=== PATIENT | male | born 1950 | race Caucasian/White ===

== ENCOUNTER → 2017-02-14 | Outpatient (CLI) | payer OTHER | LOC: BHFA 10:15 | PROVIDERS: ATTEND Internal Medicine Cardiovascular Disease | DX: I48.91 Unspecified atrial fibrillation (principal) ==

== ENCOUNTER → 2017-05-16 | Outpatient (CLI) | payer OTHER ==
[~2017-05-16] MED LIST: IOPAMIDOL (ISOVUE 370) 100 ML BTL IV ONE
== END ==
LOC: FIMAGING 08:53
PROVIDERS: ATTEND Internal Medicine Cardiovascular Disease
DX: Z09 Encounter for follow-up examination after completed treatment for conditions other than malignant neoplasm (principal); I71.2 Thoracic aortic aneurysm, without rupture; I51.7 Cardiomegaly
CPT/HCPCS: 71275; Q9967

== ENCOUNTER → 2017-05-16 | Outpatient (CLI) | payer OTHER | LOC: FCPNEURO 20:00 | PROVIDERS: ATTEND Psychiatry & Neurology Sleep Medicine | DX: G47.33 Obstructive sleep apnea (adult) (pediatric) (principal); G47.39 Other sleep apnea | CPT/HCPCS: Q9967 ==

== ENCOUNTER 2017-05-28 08:02 | Day surgery (SDC) | payer OTHER ==
[2017-05-28] MEDS ORDERED: DIAZEPAM 5 MG TAB PO ONE (08:04)
[2017-05-28] MEDS ORDERED: ASPIRIN EC 325 MG TAB PO ONE ×2 (08:04→08:26)
[2017-05-28] MEDS ORDERED: FAMOTIDINE 20 MG TAB PO ONE (08:04)
[2017-05-28] MEDS ORDERED: diphenhydrAMINE 25 MG CAP PO ONE ×2 (08:04→08:26)
[2017-05-28] MEDS ORDERED: NS 1,000 ML IV ONE (08:04)
--- NOTE | 2017-05-28 08:25 | CPEKG ---
Heart Rate: 71 RR Interval: 845 P-R Interval: 240 QRSD Interval: 78 QT Interval: 428 QTC Interval: 466 QRS Fre[place]: 27 T Wave Freeland: -7 EKG Severity - ABNORMAL ECG - EKG Impression: ATRIAL-PACED COMPLEXES EKG Impression: FIRST DEGREE AV BLOCK EKG Impression: LOW VOLTAGE IN FRONTAL LEADS EKG Impression: Single A-V paced beat Electronically Signed By: Niels Ortiz 28-May-2017 14:29:22
[2017-05-28] MEDS ORDERED: DIAZEPAM 5 MG TAB ONE (08:26)
[2017-05-28] MEDS ORDERED: FAMOTIDINE 20 MG TAB ONE (08:26)
[2017-05-28] MEDS ORDERED: fentaNYL 100 MCG/2 ML INJ ONE (08:30)
[2017-05-28] MEDS ORDERED: LIDOCAINE 1% 300 MG/30 ML SDV ONE (08:30)
[2017-05-28] MEDS ORDERED: IOPAMIDOL (ISOVUE-370) 150 ML BTL IV ONE (08:31)
[2017-05-28] MEDS ORDERED: HEPARIN 10,000 UNIT/10 ML MDV ONE (08:31)
[2017-05-28] MEDS ORDERED: MIDAZOLAM 2 MG/2 ML VIAL ONE (08:31)
[2017-05-28] MEDS ORDERED: VERAPAMIL 5 MG/2 ML VIAL ONE (08:31)
[2017-05-28 08:42] LABS: % IMMATURE GRANULYOCYTES 0.4 % (0.0-1.1); ABSOLUTE IMMATURE GRANULOCYTES 0.02 10^3/uL (0.00-0.10); ADD DIFF? NO; ADD MORPH? NO; ADD SCAN? NO; ATYPICAL LYMPHOCYTE FLAG 0 (0-99); FRAGMENT RBC FLAG 0 (0-99); HEMATOCRIT 43.4 % (40.0-51.0); HEMOGLOBIN 15.6 g/dL (13.7-17.5); LEFT SHIFT FLG 0 (0-99); LIPEMIA HEMOLYSIS FLAG 90 (0-99); MEAN CELL HEMOGLOBIN 32.1 pg (27.9-34.1); MEAN CELL HEMOGLOBIN CONCENTR. 35.9 g/dL (32.4-36.7); MEAN CELL VOLUME 89.3 fL (81.5-99.8); MEAN PLATELET VOLUME 9.5 fL (8.7-11.7); PLATELET CLUMPS FLAG 0 (0-99); PLATELET COUNT 172 10^3/uL (150-400); RED BLOOD CELL COUNT 4.86 10^6/uL (4.40-6.38); RED CELL DISTRIBUTION WIDTH 11.9 % (11.5-15.2)
[2017-05-28 08:53] LABS: ANION GAP 11 mEq/L (8-16); CALCIUM 8.8 mg/dL (8.5-10.4); CARBON DIOXIDE 21 mEq/l (22-31); CHLORIDE 110 mEq/L (97-110); CHOLESTEROL 147 mg/dL (140-220); CHOLESTEROL/HDL RATIO 3.97 RATIO (1.00-4.97); GLOMERULAR FILTRATION RATE > 60; GLUCOSE 105 mg/dL (70-100); HIGH DENSITY LIPOPROTEIN 37 mg/dL (40-65); LDL/HDL RATIO 1.57 RATIO (1.00-3.64); LOW DENSITY LIPOPROTEIN 58 mg/dL (80-100); NON-HIGH DENSITY LIPOPROTEIN 110 mg/dL (90-129); POTASSIUM 4.2 mEq/L (3.5-5.2); SODIUM 142 mEq/L (134-144); TRIGLYCERIDE 262 mg/dL (40-150); VERY LOW DENSITY LIPOPROTEINS 52 mg/dL (8-25)
[2017-05-28 09:08] LABS: INR 1.03 (0.83-1.16); PROTIME(PATIENT) 13.4 SEC (12.0-15.0)
[2017-05-28] MEDS ORDERED: NITROGLYCERIN 0.4 MG BTL SL ONE (10:13)
[2017-05-28] MEDS ORDERED: ATROPINE SULFATE 1 MG/10 ML SYR IVP PRN (10:34)
[2017-05-28] MEDS ORDERED: ONDANSETRON 4 MG/2 ML VIAL IVP PRN (10:34)
[2017-05-28] MEDS ORDERED: NITROGLYCERIN 0.4 MG BTL SL PRN (10:34)
--- NOTE | 2017-05-28 10:38 | PDDXCAT ---
Diagnostic Cath Note - . 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 RCA: Dominant: Luminal irregularites. No focal stenosis EDP: 8 mmhg LVEF: 65 Wall motion: Normal Complications: none Closure method: TR Band Assessment: 1. 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 2. Normal LV systolic function. Plan: Secondary prevention. Medical management. Patient Problems: Problems Problem Status Onset Atrial fibrillation or flutter Acute Bradycardia Acute
== END 2017-05-28 13:09 | disposition home or self-care (01) ==
LOC: FCATH 08:02
PROVIDERS: ATTEND Internal Medicine Interventional Cardiology
PROC: 4A023N7 Measurement of Cardiac Sampling and Pressure, Left Heart, Percutaneous Approach (ICD-10-PCS; principal; 2017-05-28)
PROC: B2111ZZ Fluoroscopy of Multiple Coronary Arteries using Low Osmolar Contrast (ICD-10-PCS; principal; 2017-05-28)
PROC: B2151ZZ Fluoroscopy of Left Heart using Low Osmolar Contrast (ICD-10-PCS; principal; 2017-05-28)
DX: I47.2 Ventricular tachycardia (principal); I48.91 Unspecified atrial fibrillation
CPT/HCPCS: 93005; 93458; C1769; J1644; J2250; J3010; Q9967

== ENCOUNTER → 2017-07-16 | Outpatient (CLI) | payer OTHER | LOC: FCPNEURO 23:17 | PROVIDERS: ATTEND Psychiatry & Neurology Sleep Medicine | DX: G47.33 Obstructive sleep apnea (adult) (pediatric) (principal); G47.39 Other sleep apnea ==

== ENCOUNTER → 2018-05-15 | Outpatient (CLI) | payer OTHER | LOC: BHFA 09:30 | PROVIDERS: ATTEND Internal Medicine Cardiovascular Disease | DX: I48.91 Unspecified atrial fibrillation (principal) ==